=== PATIENT | female | born 1960 | race Two or more races ===

== ENCOUNTER → 2016-05-07 | Outpatient (CLI) | payer OTHER ==
[~2016-05-07] MED LIST: ALTOPREV40 MG PO; ASPIRIN81 M2 PO; CHOLESTROL MED; IBUPROFEN100 MG PO; LIPITOR20 MG PO
--- NOTE | ~2016-05-07 | EKG ---
PATIENT: ZIGGY ROQUE UNIT #: [id number] Ventricular Rate: 74 BPM Atrial Rate: 74 BPM P-R Interval: 136 ms QRS Duration: 84 ms Q-T Interval: 382 ms QTC Calculation(Bezet): 424 ms P Laie: 10 degrees Calculated R Laie: 57 degrees Calculated T Laie: 30 degrees Diagnosis Line: Normal sinus rhythm Diagnosis Line: Nonspecific T wave abnormality Diagnosis Line: Otherwise normal ECG Diagnosis Line: Diagnosis Line: Confirmed by BRISA HARKINS MD ([id number]) on 05/08/2016 Diagnosis Line: 9:36:24 AM INTERPRETING MD: SHAHANA ANDRES
[2016-05-07 11:41] LABS: HEMOGLOBIN 14.5 gm/dL (12.0-16.0); MEAN CELL VOLUME 82.7 FL (83-96); MEAN CORPUSCULAR HEMOGLOBIN 27.1 PG (28-34); MEAN CORPUSCULAR HGB CONC 32.8 g/dL (30-36); MEAN PLATELET VOLUME 9.6 FL (6.5-11.5); RED BLOOD COUNT 5.32 X10e (3.90-5.30); RED CELL DISTRIBUTION WIDTH 14.2 % (11.0-15.5); WHITE BLOOD COUNT 7.3 X10e3 (4.0-10.5)
[2016-05-07 12:06] LABS: CALCIUM SERUM 9.5 mg/dL (8.4-10.2); CREATININE SERUM 0.6 mg/dL (0.6-1.4); GLOM FILT RATE Estimated 104.1 mL/min (>60); POTASSIUM 4.2 mmol/L (3.5-5.1)
== END | disposition home or self-care (01) ==
LOC: CEKG 11:10
PROVIDERS: Specialist
DX: J38.1 Polyp of vocal cord and larynx (principal)
CPT/HCPCS: 36415; 80048; 85027; 93005

== ENCOUNTER → 2016-07-01 | Outpatient (CLI) | payer OTHER ==
--- NOTE | ~2016-07-01 | MY11 ---
[facility] A Service of [facility] RADIOLOGY TEXT RESULTS PATIENT: ZIGGY ROQUE LOCATION: [facility] : 64 UNIT #: [id number] AGE: [address]: RABIA BUCKLEY APRN SEX: F ORDER DR: [id number] [facility] [address] [place], [place] [address] [id number] O MR#: [id number] Acc #: [id number] NAME: ZIGGY ROQUE : 1960 SEX: F STUDY DATE/TIME: 07/01/2016 10:22 UNIT: [facility] ROOM: STUDY DESCRIPTION: MY Mammogram Screening Dig Darin Attending Physician: Rabia Buckley Ordering Physician: George Buckley Aprn Primary Care Physician: Scott Vasques M.D. MEDICAL IMAGING REPORT This report is preliminary unless electronic signature is present EXAM Digital screening mammogram, 07/01/2016 HISTORY 55-year-old woman with previous bilateral breast reduction surgery 2012. No risk elevation. Annual screening. COMPARISON 11/25/2011, 02/21/2013, 05/01/2014, 05/08/2015 FINDINGS Digital imaging of each breast was completed utilizing screening protocol. Review includes FDA-approved CAD device. Breast parenchyma is partially fatty replaced. Parenchymal dominance central left breast is again noted and stable. Occasional benign punctate calcification noted. There is no interval occurring breast mass. There are no suspicious microcalcifications and no suspicious architectural deformity. IMPRESSION Stable benign mammogram. Annual screening recommended. Patients over the age of 40 are entered into a reminder system with target due date for the next mammogram. A result letter will also be sent to the patient. BIRADS: 2 Benign Finding Dictated by... Thor Cao M.D. THIS IS AN ELECTRONICALLY VERIFIED REPORT Thor Cao M.D. at 07/02/2016 8:07 AM [facility] A Service of [facility] RADIOLOGY TEXT RESULTS PATIENT: ZIGGY ROQUE LOCATION: [facility] : 64 UNIT #: [id number] AGE: [address]: RABIA BUCKLEY APRN SEX: F ORDER DR: JEANIE/edilson TD: 07/01/2016 11:01 JOB #: [id number] MEDICAL IMAGING REPORT Page 1 of 1 COPY
== END | disposition home or self-care (01) ==
LOC: CWCC 10:00
DX: Z12.31 Encounter for screening mammogram for malignant neoplasm of breast (principal)
CPT/HCPCS: G0202